=== PATIENT | female | born 1950 | race Caucasian/White ===

== ENCOUNTER → 2016-12-20 | Outpatient (CLI) | payer OTHER ==
[~2016-12-20] MED LIST: CLOB0.058 TOP; FURO40TA3 PO; LEVO150T9 PO; LOSA50TA6 PO; METF500T PO; NYSS/ PO; OXYC5TAB PO; PARO20TA4 PO
--- NOTE | 2016-12-20 10:16 | DIAGNOSTIC IMAGING REPORT ---
DOUBLE CONTRAST UPPER GI SERIES CLINICAL HISTORY: Nausea and vomiting. Gastric bypass. COMPARISON STUDY: None FLUOROSCOPY TIME: 1.2 minutes. FINDINGS: 14 fluoroscopic images were obtained. Esophageal motility was normal. No esophageal mass or stricture was identified. There are expected findings following gastric bypass. The gastrojejunostomy is patent. There is no significant narrowing. No extravasation is identified. Caliber of opacified jejunum was normal. IMPRESSION: Expected findings following gastric bypass, as described above. Electronically signed by: Sebastian Cao M.D. 12/20/2016 10:14 AM Dictated Date/Time: 12/20/2016 10:12 AM
== END | disposition home or self-care (01) ==
LOC: C.RAD 09:25
PROVIDERS: ATTEND Internal Medicine Gastroenterology
DX: K91.2 Postsurgical malabsorption, not elsewhere classified (principal); R11.11 Vomiting without nausea